=== PATIENT | female | born 1945 | race Caucasian/White ===

== ENCOUNTER 2017-08-23 15:48 | Emergency (ER) | payer MEDICARE, BC ==
[~2017-08-23] VITALS: Ht 162.6 cm; Wt 50.0 kg
[~2017-08-23 15:48] MED LIST: ALBU18HF2 IH; ASPI-1265 PO; COL100C PO; FAMO-128 PO; FENO145T38 PO; LEVO50TA67 PO; METO50TA16 PO; NITR0.4T51 SL; SIMV20TA5 PO
[2017-08-23] MEDS ORDERED: normal saline 1000ML IV soln IVB ONE (18:00)
[2017-08-23] MEDS ORDERED: ondansetron/PF 4mg/2ml inj IV ONE (18:00)
[2017-08-23 18:19] LABS: CLARITY,URINE CLEAR (Clear); COLOR,URINE YELLOW (Yellow); GLUCOSE, URINE NEGATIVE (Neg); KETONES,URINE NEGATIVE (Neg); LEUKOCYTE ESTERASE ,URINE LARGE (Neg); NITRITES, URINE POSITIVE (Neg); OCCULT BLOOD,URINE LARGE (Neg); PH,URINE 6.5 (4.8-8.0); PROTEIN,URINE TRACE mg/dl (Neg)
[2017-08-23 18:21] LABS: UA COLLECTION TYPE VOIDED
[2017-08-23 18:25] LABS: BACTERIA,URINE 4+ /HPF (Neg); RBC,URINE TNTC /HPF (0-2); SQUAMOUS EPITHELIAL CELL,UR FEW /LPF (FEW); WBC,URINE 20-30 /HPF (0-4)
[2017-08-23 18:26] LABS: URINE AMPHETAMINE SCREEN NEGATIVE (Neg); URINE BARBITUATE SCREEN NEGATIVE (Neg); URINE BENZODIAZEPINES SCREEN NEGATIVE (Neg); URINE CANNABINOID SCREEN NEGATIVE (Neg); URINE COCAINE SCREEN NEGATIVE (Neg); URINE METHADONE SCREEN NEGATIVE (Neg); URINE OPIATE SCREEN NEGATIVE (Neg); URINE PHENCYCLIDINE SCREEN NEGATIVE (Neg); WBC CLUMPS,URINE FEW /HPF (NEGATIVE)
[2017-08-23 18:48] LABS: BASOPHILS % (AUTO) 0.2 % (0-1); EOSINOPHILS # (AUTO) 0.1 X10'3 (0-0.9); EOSINOPHILS % (AUTO) 1.6 % (0-6); HEMATOCRIT 31.8 % (35.0-45.0); HEMOGLOBIN 10.4 g/dl (12.0-16.0); LYMPHOCYTES % (AUTO) 14.7 % (21-51); MEAN CORPUSCULAR HEMOGLOBIN 19.9 PG (27.0-31.0); MEAN CORPUSCULAR HGB CONC 32.6 % (33.0-36.5); MEAN CORPUSCULAR VOLUME 61.2 FL (78-98); MEAN PLATELET VOLUME 9.2 FL (7.4-10.4); MONOCYTES # (AUTO) 0.3 X10'3 (0-0.9); MONOCYTES % (AUTO) 4.6 % (2-12); NEUTROPHILS # (AUTO) 5.2 X10'3 (1.8-7.7); NEUTROPHILS % (AUTO) 78.9 % (42-75); PLATELET COUNT 239 X10'3 (140-440); RED BLOOD COUNT 5.19 X10'6 (4.20-5.60); RED CELL DISTRIBUTION WIDTH 16.2 % (11.5-14.5); WHITE BLOOD COUNT 6.5 X10'3 (4.5-11.0)
[2017-08-23 19:11] LABS: ALANINE AMINOTRANSFERASE 27 U/L (12-78); ALBUMIN 3.8 G/DL (3.4-5.0); ALBUMIN/GLOBULIN RATIO 1.1 (1.1-1.5); ALKALINE PHOSPHATASE 61 IU/L (46-116); ANION GAP 12 (8-16); ASPARTATE AMINO TRANSFERASE 23 U/L (10-37); BILIRUBIN,TOTAL 0.8 MG/DL (0.1-1.0); BLOOD UREA NITROGEN 9 MG/DL (7-18); BUN/CREATININE RATIO 14.1 (6.6-38.0); CALCIUM 9.1 MG/DL (8.5-10.1); CHLORIDE 106 MMOL/L (99-107); CREATININE 0.64 MG/DL (0.40-0.90); GLUCOSE 96 MG/DL (70-104); LIPASE 174 U/L (73-393); POTASSIUM 3.7 MMOL/L (3.5-5.1); SODIUM 139 MMOL/L (135-145); TOTAL CARBON DIOXIDE 21.3 MMOL/L (24-32); TOTAL PROTEIN 7.3 G/DL (6.4-8.2); TROPONIN I 0.04 NG/ML (0.0-0.05); eGFR > 90 ML/MIN
[2017-08-23] MEDS ORDERED: cefTRIAXone 1g/NS 100ml IVPB 100 ML IV ONE (19:25)
[2017-08-23 20:20] LABS: ANISOCYTOSIS 1+; HYPOCHROMASIA 2+; MICROCYTOSIS 2+; POIKILOCYTOSIS 1+; POLYCHROMASIA FEW; SPHEROCYTES FEW; TARGET CELLS FEW
[2017-08-23 20:21] LABS: BURR CELLS 1+; ELLIPTOCYTES 1+; TEAR DROP CELLS 1+
[2017-08-23 20:22] LABS: SCHISTOCYTES 1+
[2017-08-23 20:23] LABS: GIANT PLATELET FEW; LARGE PLATELETS FEW
[2017-08-23 20:24] LABS: PLATELET ESTIMATE NORMAL
[2017-08-23] MEDS ORDERED: LEVO500T2 PO (20:55)
[2017-08-23 21:21] VITALS: BP 111/66
== END 2017-08-23 21:24 | disposition home or self-care (01) ==
LOC: ER 15:49
DX: N12 Tubulo-interstitial nephritis, not specified as acute or chronic (principal); I25.10 Atherosclerotic heart disease of native coronary artery without angina pectoris; I10 Essential (primary) hypertension; J44.9 Chronic obstructive pulmonary disease, unspecified; Z87.891 Personal history of nicotine dependence; Z79.82 Long term (current) use of aspirin; Z88.2 Allergy status to sulfonamides
CPT/HCPCS: 36415; 71045; 74176; 80053; 80305; 81001; 83605; 83690; 83880; 84484; 85025; 87040; 87077; 87088; 87186; 93005; 96361; 96365; 96375; 99285; J0696; J2405; J7030; A4353

== ENCOUNTER 2018-04-11 11:32 | Outpatient (CLI) | payer MEDICARE ==
[2018-04-11] VITALS (21 sets, daily range): BP systolic 101–169; BP diastolic 53–86
== END 2018-04-11 23:59 | disposition home or self-care (01) ==
LOC: CARD DIAG 11:32
PROVIDERS: ATTEND Family Medicine
DX: R42 Dizziness and giddiness (principal); F17.200 Nicotine dependence, unspecified, uncomplicated; J44.9 Chronic obstructive pulmonary disease, unspecified; E78.5 Hyperlipidemia, unspecified; Z79.82 Long term (current) use of aspirin
CPT/HCPCS: 93660

== ENCOUNTER 2018-11-01 12:46 | Emergency (ER) | payer MEDICARE ==
[~2018-11-01] VITALS: Ht 154.9 cm; Wt 60.6 kg
[2018-11-01 12:52] VITALS: BP 164/68
== END 2018-11-01 15:03 | disposition home or self-care (01) ==
LOC: ER 12:47
DX: S63.681A Other sprain of right thumb, initial encounter (principal); I25.10 Atherosclerotic heart disease of native coronary artery without angina pectoris; I10 Essential (primary) hypertension; J44.9 Chronic obstructive pulmonary disease, unspecified; Z98.61 Coronary angioplasty status; Z88.2 Allergy status to sulfonamides; Z79.82 Long term (current) use of aspirin; Z79.899 Other long term (current) drug therapy; W18.39XA Other fall on same level, initial encounter; Y93.89 Activity, other specified; Y92.89 Other specified places as the place of occurrence of the external cause; Y99.8 Other external cause status
CPT/HCPCS: 29125; 73130; 99284

== ENCOUNTER 2019-01-18 22:31 | Emergency (ER) | payer MEDICARE ==
[~2019-01-18] VITALS: Ht 157.5 cm; Wt 61.8 kg
[~2019-01-18 22:31] MED LIST changes: -ALBU18HF2 IH; +ALBU18HF2 INH; +CHOL10002 PO; -COL100C PO; +CYAN250014 PO; -FAMO-128 PO; -FENO145T38 PO; +GEMF600T89 PO; +LISI-604 PO; -METO50TA16 PO; +MULT-933 PO; -NITR0.4T51 SL; +UMEC1DIS INH
[2019-01-18] MEDS ORDERED: lisinopril 5mg tablet PO ONE (23:05)
[2019-01-18] MEDS ORDERED: lisinopril 10 MG tablet PO ONE (23:05)
[2019-01-18 23:21] LABS: BASOPHILS # (AUTO) 0.1 X10'3 (0-0.2); BASOPHILS % (AUTO) 0.8 % (0-1); EOSINOPHILS # (AUTO) 0.2 X10'3 (0-0.9); HEMATOCRIT 34.2 % (35.0-45.0); HEMOGLOBIN 11.3 g/dl (12.0-16.0); LYMPHOCYTES # (AUTO) 1.4 X10'3 (1.1-4.8); LYMPHOCYTES % (AUTO) 21.2 % (21-51); MEAN CORPUSCULAR HEMOGLOBIN 20.7 PG (27.0-31.0); MEAN CORPUSCULAR VOLUME 62.7 FL (78-98); MEAN PLATELET VOLUME 10.6 FL (7.4-10.4); MONOCYTES # (AUTO) 0.4 X10'3 (0-0.9); MONOCYTES % (AUTO) 6.4 % (2-12); NEUTROPHILS # (AUTO) 4.6 X10'3 (1.8-7.7); NEUTROPHILS % (AUTO) 68.6 % (42-75); PLATELET COUNT 288 X10'3 (140-440); RED BLOOD COUNT 5.45 X10'6 (4.20-5.60); RED CELL DISTRIBUTION WIDTH 16.5 % (11.5-14.5); WHITE BLOOD COUNT 6.7 X10'3 (4.5-11.0)
[2019-01-18 23:32] LABS: ALANINE AMINOTRANSFERASE 24 U/L (12-78); ALBUMIN 4.1 G/DL (3.4-5.0); ALBUMIN/GLOBULIN RATIO 1.1 (1.1-1.5); ALKALINE PHOSPHATASE 62 IU/L (46-116); ANION GAP 11 (8-16); ASPARTATE AMINO TRANSFERASE 20 U/L (10-37); BILIRUBIN,TOTAL 0.6 MG/DL (0.1-1.0); BLOOD UREA NITROGEN 16 MG/DL (7-18); BUN/CREATININE RATIO 16.3 (6.6-38.0); CALCIUM 8.9 MG/DL (8.5-10.1); CHLORIDE 103 MMOL/L (99-107); CREATININE 0.98 MG/DL (0.40-0.90); GLUCOSE 102 MG/DL (70-104); POTASSIUM 3.8 MMOL/L (3.5-5.1); SODIUM 138 MMOL/L (135-145); TOTAL CARBON DIOXIDE 24.3 MMOL/L (24-32); TOTAL PROTEIN 7.7 G/DL (6.4-8.2); eGFR 55 ML/MIN
[2019-01-18 23:33] LABS: PARTIAL THROMBOPLASTIN TIME 28 SECONDS (22-32)
[2019-01-19 01:32] VITALS: BP 141/79
[2019-01-19 05:35] LABS: PLATELET ESTIMATE NORMAL
[2019-01-19 05:36] LABS: LARGE PLATELETS MODERATE
[2019-01-19 05:40] LABS: MICROCYTOSIS 2+
[2019-01-19 05:41] LABS: ANISOCYTOSIS 1+
== END 2019-01-19 01:37 | disposition home or self-care (01) ==
LOC: ER 22:32
DX: I10 Essential (primary) hypertension (principal); R06.00 Dyspnea, unspecified; R51 Headache; R79.1 Abnormal coagulation profile; J44.9 Chronic obstructive pulmonary disease, unspecified; I25.10 Atherosclerotic heart disease of native coronary artery without angina pectoris; E03.9 Hypothyroidism, unspecified; Z88.8 Allergy status to other drugs, medicaments and biological substances; Z88.2 Allergy status to sulfonamides; Z79.899 Other long term (current) drug therapy; Z79.82 Long term (current) use of aspirin; Z87.440 Personal history of urinary (tract) infections; Z98.890 Other specified postprocedural states; Z98.61 Coronary angioplasty status
CPT/HCPCS: 36415; 71045; 80053; 84484; 85025; 85610; 85730; 93005; 99284

== ENCOUNTER 2019-02-07 03:53 | Emergency (ER) | payer MEDICARE ==
[~2019-02-07] VITALS: Ht 160 cm; Wt 61.8 kg
[2019-02-07] MEDS ORDERED: ondansetron/PF 4mg/2ml inj IV ONE (04:15)
[2019-02-07] MEDS ORDERED: morphine 4 MG/ML inj SYRINge IV ONE (04:15)
--- NOTE | 2019-02-07 04:33 | NUR ---
AFTER TRIAGE, PT C/O NECK PAIN. C-COLLAR PLACED.
[2019-02-07 05:12] LABS: BASOPHILS % (AUTO) 0.6 % (0-1); EOSINOPHILS # (AUTO) 0.2 X10'3 (0-0.9); MEAN CORPUSCULAR VOLUME 62.7 FL (78-98); MEAN PLATELET VOLUME 9.1 FL (7.4-10.4); MONOCYTES # (AUTO) 0.4 X10'3 (0-0.9); NEUTROPHILS # (AUTO) 4.5 X10'3 (1.8-7.7)
[2019-02-07 05:15] LABS: EOSINOPHILS % (AUTO) 3.4 % (0-6); HEMATOCRIT 33.1 % (35.0-45.0); HEMOGLOBIN 10.9 g/dl (12.0-16.0); MEAN CORPUSCULAR HEMOGLOBIN 20.6 PG (27.0-31.0); MEAN CORPUSCULAR HGB CONC 32.8 g/dL (33.0-36.5); MONOCYTES % (AUTO) 5.9 % (2-12); NEUTROPHILS % (AUTO) 73.1 % (42-75); PLATELET COUNT 227 X10'3 (140-440); RED BLOOD COUNT 5.28 X10'6 (4.20-5.60); RED CELL DISTRIBUTION WIDTH 15.5 % (11.5-14.5); WHITE BLOOD COUNT 6.1 X10'3 (4.5-11.0)
[2019-02-07 05:21] LABS: PARTIAL THROMBOPLASTIN TIME 29 SECONDS (22-32)
[2019-02-07 05:23] LABS: ALANINE AMINOTRANSFERASE 26 U/L (12-78); ALBUMIN 3.6 G/DL (3.4-5.0); ALBUMIN/GLOBULIN RATIO 1.2 (1.1-1.5); ALKALINE PHOSPHATASE 58 IU/L (46-116); ANION GAP 10 (8-16); ASPARTATE AMINO TRANSFERASE 20 U/L (10-37); BILIRUBIN,TOTAL 0.5 MG/DL (0.1-1.0); BLOOD UREA NITROGEN 13 MG/DL (7-18); BUN/CREATININE RATIO 17.3 (6.6-38.0); CALCIUM 8.1 MG/DL (8.5-10.1); CHLORIDE 105 MMOL/L (99-107); CREATININE 0.75 MG/DL (0.40-0.90); GLUCOSE 110 MG/DL (70-104); POTASSIUM 3.8 MMOL/L (3.5-5.1); SODIUM 138 MMOL/L (135-145); TOTAL CARBON DIOXIDE 22.9 MMOL/L (24-32); TOTAL PROTEIN 6.7 G/DL (6.4-8.2); eGFR 75 ML/MIN
[2019-02-07 05:26] LABS: CREATINE KINASE 149 U/L (26-192); LIPASE 216 U/L (73-393); TROPONIN I < 0.04 NG/ML (0.0-0.05)
--- NOTE | 2019-02-07 05:26 | NUR ---
C-collar removed after clearance from
[2019-02-07 05:35] LABS: LARGE PLATELETS MODERATE; PLATELET ESTIMATE NORMAL
[2019-02-07 05:36] LABS: ANISOCYTOSIS 1+; ELLIPTOCYTES 1+; HYPOCHROMASIA 1+; MICROCYTOSIS 2+; POLYCHROMASIA 1+; SCHISTOCYTES FEW; TEAR DROP CELLS 1+
[2019-02-07 06:21] VITALS: BP 124/83
--- NOTE | 2019-02-07 06:30 | NUR ---
PATIENT ACCEPTED AT [facility] ER BY DR. LANDEROS. [facility] ARRANGED, 30 MINUTE ETA.
[2019-02-07] MEDS ORDERED: levoFLOXACIN-Levaquin 750MG/D5 150 ML IV STA (06:31)
[2019-02-07 06:36] LABS: CLARITY,URINE SLIGHTLY CLOUDY (Clear); COLOR,URINE STRAW (Yellow); GLUCOSE, URINE NEGATIVE (Neg); KETONES,URINE NEGATIVE (Neg); LEUKOCYTE ESTERASE ,URINE LARGE (Neg); NITRITES, URINE POSITIVE (Neg); OCCULT BLOOD,URINE TRACE-INTACT (Neg); PH,URINE 6.5 (4.8-8.0); PROTEIN,URINE NEGATIVE (Neg); UROBILINOGEN,URINE 0.2 E.U/dL (0.2-1.0)
[2019-02-07 06:38] LABS: UA COLLECTION TYPE CLN CATCH MIDSTREAM
[2019-02-07 06:41] LABS: MUCUS STRANDS FEW /LPF (Neg); SQUAMOUS EPITHELIAL CELL,UR FEW /LPF (FEW); WBC CLUMPS,URINE MODERATE /HPF (NEGATIVE)
[2019-02-07 06:42] LABS: RBC,URINE 0-2 /HPF (0-2); WBC,URINE 20-30 /HPF (0-4)
[2019-02-07 06:43] LABS: BACTERIA,URINE 1+ /HPF (Neg)
== END 2019-02-07 07:28 | disposition short-term general hospital (02) ==
LOC: ER 03:54
DX: S06.6X0A Traumatic subarachnoid hemorrhage without loss of consciousness, initial encounter (principal); S51.011A Laceration without foreign body of right elbow, initial encounter; S40.022A Contusion of left upper arm, initial encounter; J18.1 Lobar pneumonia, unspecified organism; I25.10 Atherosclerotic heart disease of native coronary artery without angina pectoris; I10 Essential (primary) hypertension; J44.9 Chronic obstructive pulmonary disease, unspecified; E03.9 Hypothyroidism, unspecified; F17.200 Nicotine dependence, unspecified, uncomplicated; Z95.5 Presence of coronary angioplasty implant and graft; Z98.890 Other specified postprocedural states; Z88.2 Allergy status to sulfonamides; Z79.82 Long term (current) use of aspirin; Z79.899 Other long term (current) drug therapy; W19.XXXA Unspecified fall, initial encounter; Y93.89 Activity, other specified; Y92.092 Bedroom in other non-institutional residence as the place of occurrence of the external cause; Y99.9 Unspecified external cause status
CPT/HCPCS: 36415; 70450; 70486; 71045; 72125; 80053; 81001; 82550; 83690; 84484; 85025; 85610; 85730; 87077; 87088; 87186; 93005; 96365; 96375; 99285; J1956; J2270; J2405

== ENCOUNTER 2019-06-08 12:37 | Emergency (ER) | payer MEDICARE ==
[~2019-06-08] VITALS: Ht 162.6 cm; Wt 59.1 kg
[~2019-06-08 12:37] MED LIST changes: +SIMV-42 PO; -SIMV20TA5 PO
[2019-06-08 12:45] VITALS: BP 159/85
[2019-06-08] MEDS ORDERED: HYDROcodone/acetaminophen 10/325mg tab PO ONE (13:40)
[2019-06-08] MEDS ORDERED: HYDR-4383 PO (13:41)
[2019-06-09] MEDS ORDERED: CEPH500C5 PO (15:48)
== END 2019-06-08 14:24 | disposition home or self-care (01) ==
LOC: ER 12:38
DX: S29.9XXA Unspecified injury of thorax, initial encounter (principal); S09.90XA Unspecified injury of head, initial encounter; I25.10 Atherosclerotic heart disease of native coronary artery without angina pectoris; E78.00 Pure hypercholesterolemia, unspecified; I10 Essential (primary) hypertension; J44.9 Chronic obstructive pulmonary disease, unspecified; E03.9 Hypothyroidism, unspecified; Z98.61 Coronary angioplasty status; Z98.890 Other specified postprocedural states; Z88.6 Allergy status to analgesic agent; Z88.2 Allergy status to sulfonamides; Z79.82 Long term (current) use of aspirin; Z79.899 Other long term (current) drug therapy; W18.39XA Other fall on same level, initial encounter; Y93.89 Activity, other specified; Y92.098 Other place in other non-institutional residence as the place of occurrence of the external cause; Y99.8 Other external cause status
CPT/HCPCS: 70450; 71045; 99284

== ENCOUNTER 2019-06-09 13:27 | Emergency (ER) | payer MEDICARE ==
[~2019-06-09] VITALS: Ht 160 cm; Wt 61.4 kg
[~2019-06-09 13:27] MED LIST changes: +HYDR-4383 PO
--- NOTE | 2019-06-09 14:13 | NUR ---
PT TO CT SCAN , C-COLLAR REMOVED.
[2019-06-09 14:48] LABS: BASOPHILS % (AUTO) 0.4 % (0-1); EOSINOPHILS # (AUTO) 0.1 X10'3 (0-0.9); EOSINOPHILS % (AUTO) 1.7 % (0-6); HEMATOCRIT 34.8 % (35.0-45.0); HEMOGLOBIN 11.3 g/dl (12.0-16.0); LYMPHOCYTES # (AUTO) 0.9 X10'3 (1.1-4.8); LYMPHOCYTES % (AUTO) 19.1 % (21-51); MEAN CORPUSCULAR HEMOGLOBIN 20.7 PG (27.0-31.0); MEAN CORPUSCULAR HGB CONC 32.4 g/dL (33.0-36.5); MEAN CORPUSCULAR VOLUME 63.8 FL (78-98); MEAN PLATELET VOLUME 9.5 FL (7.4-10.4); MONOCYTES # (AUTO) 0.5 X10'3 (0-0.9); MONOCYTES % (AUTO) 11.3 % (2-12); NEUTROPHILS # (AUTO) 3.3 X10'3 (1.8-7.7); NEUTROPHILS % (AUTO) 67.5 % (42-75); PLATELET COUNT 183 X10'3 (140-440); RED BLOOD COUNT 5.45 X10'6 (4.20-5.60); RED CELL DISTRIBUTION WIDTH 15.8 % (11.5-14.5); WHITE BLOOD COUNT 4.8 X10'3 (4.5-11.0)
[2019-06-09 15:06] LABS: CLARITY,URINE CLOUDY (Clear); COLOR,URINE STRAW (Yellow); GLUCOSE, URINE NEGATIVE (Neg); KETONES,URINE NEGATIVE (Neg); LEUKOCYTE ESTERASE ,URINE MODERATE (Neg); NITRITES, URINE POSITIVE (Neg); OCCULT BLOOD,URINE NEGATIVE (Neg); PROTEIN,URINE NEGATIVE (Neg); UROBILINOGEN,URINE 0.2 E.U/dL (0.2-1.0)
[2019-06-09 15:12] LABS: UA COLLECTION TYPE STRAIGHT CATH
[2019-06-09 15:17] LABS: MUCUS STRANDS NONE SEEN /LPF (Neg); SQUAMOUS EPITHELIAL CELL,UR NONE SEEN /LPF (FEW)
[2019-06-09 15:19] LABS: BACTERIA,URINE 4+ /HPF (Neg); RBC,URINE 0-2 /HPF (0-2); WBC,URINE 20-30 /HPF (0-4)
[2019-06-09 15:30] LABS: PLATELET ESTIMATE NORMAL
[2019-06-09 15:31] LABS: ANISOCYTOSIS 1+; HYPOCHROMASIA 1+; MICROCYTOSIS 2+; POIKILOCYTOSIS 3+; POLYCHROMASIA FEW
[2019-06-09 15:32] LABS: BURR CELLS FEW; ELLIPTOCYTES 1+; SCHISTOCYTES 3+; TEAR DROP CELLS 3+
[2019-06-09 15:40] LABS: ALANINE AMINOTRANSFERASE 26 U/L (12-78); ALBUMIN 4.1 G/DL (3.4-5.0); ALBUMIN/GLOBULIN RATIO 1.2 (1.1-1.5); ALKALINE PHOSPHATASE 59 IU/L (46-116); ANION GAP 6 (8-16); ASPARTATE AMINO TRANSFERASE 23 U/L (10-37); BILIRUBIN,TOTAL 0.6 MG/DL (0.1-1.0); BLOOD UREA NITROGEN 17 MG/DL (7-18); BUN/CREATININE RATIO 19.5 (6.6-38.0); CHLORIDE 105 MMOL/L (99-107); CREATININE 0.87 MG/DL (0.40-0.90); GLUCOSE 90 MG/DL (70-104); POTASSIUM 3.9 MMOL/L (3.5-5.1); SODIUM 140 MMOL/L (135-145); TOTAL CARBON DIOXIDE 29.1 MMOL/L (24-32); TOTAL PROTEIN 7.4 G/DL (6.4-8.2); eGFR 63 ML/MIN
[2019-06-09] MEDS ORDERED: CEPH500C5 PO (15:48)
[2019-06-09] MEDS ORDERED: cephalexin 250mg capsule PO ONE (15:50)
--- NOTE | 2019-06-09 16:12 | NUR ---
PT ABSOLUTELY REFUSED HER ANTIBIOTIC, STATES HER DOCTOR TOLD HER NOT TO TAKE ANY ANTIBIOTICS. EXPLAINED TO PT THE DANGERS OF NOT TREATING A UTI. WAS NOTIFIED THAT PT REFUSED MED. PT DISCHARGED WITH PRESCRIPTION FOR KEFLEX, BUT SAID SHE WON'T GET IT, ENCOURAGED TO F/U CLOSELY WITH HER PMD FOR THIS MATTER.
[2019-06-09 16:19] VITALS: BP 145/51
== END 2019-06-09 16:20 | disposition home or self-care (01) ==
LOC: ER 13:28
DX: S00.03XA Contusion of scalp, initial encounter (principal); N39.0 Urinary tract infection, site not specified; I25.10 Atherosclerotic heart disease of native coronary artery without angina pectoris; E78.00 Pure hypercholesterolemia, unspecified; I10 Essential (primary) hypertension; J44.9 Chronic obstructive pulmonary disease, unspecified; E03.9 Hypothyroidism, unspecified; Z98.61 Coronary angioplasty status; Z98.890 Other specified postprocedural states; Z88.2 Allergy status to sulfonamides; Z88.8 Allergy status to other drugs, medicaments and biological substances; Z79.82 Long term (current) use of aspirin; Z79.899 Other long term (current) drug therapy; W19.XXXA Unspecified fall, initial encounter; Y93.89 Activity, other specified; Y92.009 Unspecified place in unspecified non-institutional (private) residence as the place of occurrence of the external cause; Y99.8 Other external cause status
CPT/HCPCS: 36415; 70450; 71250; 72125; 80053; 81001; 85025; 99284

== ENCOUNTER 2019-07-09 03:13 | Inpatient (IN) | payer MEDICARE ==
[~2019-07-09] VITALS: Ht 157.5 cm; Wt 62.0 kg
[~2019-07-09 03:13] MED LIST changes: +CEPH500C5 PO
[2019-07-09 03:44] LABS: BASOPHILS # (AUTO) 0.1 X10'3 (0-0.2); BASOPHILS % (AUTO) 0.9 % (0-1); EOSINOPHILS # (AUTO) 0.2 X10'3 (0-0.9); EOSINOPHILS % (AUTO) 1.2 % (0-6); HEMATOCRIT 38.1 % (35.0-45.0); HEMOGLOBIN 12.3 g/dl (12.0-16.0); LYMPHOCYTES # (AUTO) 1.1 X10'3 (1.1-4.8); LYMPHOCYTES % (AUTO) 8.3 % (21-51); MEAN CORPUSCULAR HEMOGLOBIN 20.5 PG (27.0-31.0); MEAN CORPUSCULAR HGB CONC 32.3 g/dL (33.0-36.5); MEAN CORPUSCULAR VOLUME 63.5 FL (78-98); MEAN PLATELET VOLUME 9.5 FL (7.4-10.4); MONOCYTES # (AUTO) 0.4 X10'3 (0-0.9); MONOCYTES % (AUTO) 2.9 % (2-12); NEUTROPHILS # (AUTO) 11.2 X10'3 (1.8-7.7); NEUTROPHILS % (AUTO) 86.7 % (42-75); PLATELET COUNT 269 X10'3 (140-440); RED CELL DISTRIBUTION WIDTH 15.2 % (11.5-14.5); WHITE BLOOD COUNT 12.9 X10'3 (4.5-11.0)
[2019-07-09] MEDS ORDERED: AMLO2.5T2 PO (03:52)
[2019-07-09 03:55] LABS: ALANINE AMINOTRANSFERASE 20 U/L (12-78); ALBUMIN 4.5 G/DL (3.4-5.0); ALBUMIN/GLOBULIN RATIO 1.5 (1.1-1.5); ALKALINE PHOSPHATASE 69 IU/L (46-116); ANION GAP 10 (8-16); ASPARTATE AMINO TRANSFERASE 17 U/L (10-37); BILIRUBIN,TOTAL 0.7 MG/DL (0.1-1.0); BLOOD UREA NITROGEN 18 MG/DL (7-18); BUN/CREATININE RATIO 21.4 (6.6-38.0); CALCIUM 9.4 MG/DL (8.5-10.1); CHLORIDE 99 MMOL/L (99-107); CREATININE 0.84 MG/DL (0.40-0.90); GLUCOSE 123 MG/DL (70-104); POTASSIUM 3.7 MMOL/L (3.5-5.1); SODIUM 136 MMOL/L (135-145); TOTAL CARBON DIOXIDE 26.7 MMOL/L (24-32); TOTAL PROTEIN 7.5 G/DL (6.4-8.2); eGFR 66 ML/MIN
[2019-07-09] MEDS ORDERED: KEP500T PO (03:57)
[2019-07-09] MEDS ORDERED: LACT1CAP65 PO (03:57)
[2019-07-09] MEDS ORDERED: CALC-212 PO (03:57)
[2019-07-09] MEDS ORDERED: CRAN500C3 PO (03:57)
--- NOTE | 2019-07-09 03:58 | NUR ---
Dr. Guerrero at bedside assessing patient, rr even un labored denies cp no observable s/s of acute stress/pain at this time will continue to monitor
[2019-07-09 04:19] LABS: PLATELET ESTIMATE NORMAL
[2019-07-09] MEDS ORDERED: normal saline 1000ML IV soln IVB ONE (04:20)
[2019-07-09] MEDS ORDERED: pantoprazole 40 MG vial IV ONE (04:20)
[2019-07-09 04:21] LABS: ELLIPTOCYTES 1+; MICROCYTOSIS 1+
[2019-07-09] MEDS: morphine 2 MG/ML inj. syringe IV PRN ×2 (04:28→07:25)
[2019-07-09 05:46] LABS: CLARITY,URINE CLOUDY (Clear); COLOR,URINE YELLOW (Yellow); GLUCOSE, URINE NEGATIVE (Neg); KETONES,URINE NEGATIVE (Neg); LEUKOCYTE ESTERASE ,URINE NEGATIVE (Neg); NITRITES, URINE POSITIVE (Neg); OCCULT BLOOD,URINE TRACE-INTACT (Neg); PH,URINE 7.5 (4.8-8.0); PROTEIN,URINE NEGATIVE (Neg); UROBILINOGEN,URINE 0.2 E.U/dL (0.2-1.0)
[2019-07-09 05:49] LABS: UA COLLECTION TYPE STRAIGHT CATH
[2019-07-09 05:57] LABS: MUCUS STRANDS FEW /LPF (Neg); SQUAMOUS EPITHELIAL CELL,UR FEW /LPF (FEW)
[2019-07-09 05:58] LABS: BACTERIA,URINE 3+ /HPF (Neg); HYALINE CASTS 0-3 /LPF (NEGATIVE); RBC,URINE 0-2 /HPF (0-2); TRANSITIONAL EPI CELLS,URINE FEW /HPF; WBC,URINE 0-4 /HPF (0-4)
[2019-07-09] MEDS ORDERED: levoFLOXACIN-Levaquin 500mg/D5 100 ML IV ONE (06:15)
--- NOTE | 2019-07-09 06:17 | NUR ---
sbar to camelia abdullahi no questions or concerns after assuming care
--- NOTE | 2019-07-09 06:39 | NUR ---
PT RESTING IN POC WITHOUT NEED AT THIS TIME. VSS. WAITING HOSPITALIST FOR ADMISSION. 3HR TROP, LA, AND BC JUST DRAWN BY LAB, WAITING ABX FROM PHARMACY.
--- NOTE | 2019-07-09 07:31 | NUR ---
REPOSITIONED PT AND MS GIVEN FOR COMFORT. LA BACK AT 2.2 AND TEMP 99.0. HOSPITALIST PAGED.
--- NOTE | 2019-07-09 07:36 | NUR ---
SPOKE WITH ER MD ABOUT LA AND TEMP. NO NEW ORDERS. WAITING HOSPITALIST.
[2019-07-09] MEDS ORDERED: acetaminophen 325mg tablet PO PRN ×2 (07:45)
[2019-07-09] MEDS ORDERED: ondansetron/PF 4mg/2ml inj IV PRN (07:45)
[2019-07-09] MEDS ORDERED: HYDROcodone/acetaminophen 5mg/325mg tablet PO PRN (07:45)
[2019-07-09] MEDS ORDERED: mag hydrox/Alum hydrox/simeth 30ml oral suspension PO PRN (07:45)
[2019-07-09] MEDS ORDERED: morphine 2 MG/ML inj. syringe IV PRN ×2 (07:45)
[2019-07-09] MEDS ORDERED: magnesium hydroxide 30ml (MOM) UD suspension PO PRN (07:45)
[2019-07-09] MEDS: amLODIPine 5mg tablet PO SCH (08:00)
[2019-07-09] MEDS ORDERED: non-formulary drug (Calcium Cmb 2/Mag Cmb 12/Vitd3 (Calcium 500 Mg Tablet) 1 TAB) PO SCH (08:00)
[2019-07-09] MEDS ORDERED: CRANBERRY PO SCH (08:00)
[2019-07-09] MEDS: CefTRIAXone/D5W-Rocephin 1gm 50 ML IV SCH (08:09)
[2019-07-09] MEDS: normal saline 1000ml 1,000 ML IV SCH ×2 (08:09→16:27)
[2019-07-09] MEDS: azithromycin/NS 500mg/250ml 250 ML IV SCH (08:39)
--- NOTE | 2019-07-09 08:48 | NUR ---
DAUGHTER AT BEDSIDE, UPDATED ON POC AND ABX.
--- NOTE | 2019-07-09 08:57 | NUR ---
WAITING PO AM MEDS FROM PHARMACY.
--- NOTE | 2019-07-09 09:07 | NUR ---
LAB AT BEDSIDE FOR 3RD TROPONIN. PT REPORTS SOME NAUSEA, ORDERED ZOFRAN GIVEN.
[2019-07-09] MEDS: lactobacillus rhamnosus 10,000 MMU CELLS/CAPSULE PO SCH ×2 (10:45→22:12)
[2019-07-09] MEDS: levoTHYROXINE 88mcg tablet PO SCH (10:47)
[2019-07-09] MEDS: multivitamins, therapeutics tablet PO SCH (10:48)
[2019-07-09] MEDS: cyanocobalamin 500mcg tablet PO SCH (10:49)
[2019-07-09] MEDS: levetiracetam 250mg tablet PO SCH ×2 (10:51→22:12)
[2019-07-09] MEDS: heparin, porcine 5000 units/ml vial SQ SCH ×2 (10:53→22:13)
[2019-07-09] MEDS: vitamin D (cholecalciferol) 1,000 unit tablet PO SCH (10:59)
[2019-07-09 11:00] VITALS: BP 99/57
--- NOTE | 2019-07-09 11:00 | NUR ---
received report from Joan GARNER.
--- NOTE | 2019-07-09 14:57 | NUR ---
Malnutrition consult: Pt admit w/ UTI and L lower lobe PNA per MD. BMI 25, pt well-appearing per MD note, no edema/wounds, and no wt loss comparing gurney scaled wts prior admit 7 months ago. PO heart healthy diet pending. At this time pt does not meet minimum malnutrition criteria. Will monitor for additional criteria this admit. Addendum: 07/09/19 at [address] Amended: Links added.
--- NOTE | 2019-07-09 18:00 | NUR ---
Problems reprioritized. Patient report given, questions answered & plan of care reviewed with PASCUAL Gallegos.
[2019-07-09] MEDS: traMADol 50MG tablet PO PRN (18:15)
[2019-07-09 20:00] VITALS: BP 104/49
[2019-07-09] MEDS: atorvastatin 10mg tablet PO SCH (22:12)
[2019-07-10] VITALS: BP 86/50
[2019-07-10 00:15] VITALS: BP 92/52
[2019-07-10] MEDS: normal saline 1000ml 1,000 ML IV SCH ×3 (01:40→23:30)
--- NOTE | 2019-07-10 06:00 | NUR ---
Patient in room [facility]. I have received report from PASCUAL Oviedo and had the opportunity to ask questions and assume patient care.
[2019-07-10 08:00] VITALS: BP 97/55
[2019-07-10] MEDS: amLODIPine 5mg tablet PO SCH (08:00)
[2019-07-10] MEDS: lactobacillus rhamnosus 10,000 MMU CELLS/CAPSULE PO SCH ×2 (08:06→19:40)
[2019-07-10] MEDS: traMADol 50MG tablet PO PRN (08:06)
[2019-07-10] MEDS: levetiracetam 250mg tablet PO SCH ×2 (08:07→19:40)
[2019-07-10] MEDS: multivitamins, therapeutics tablet PO SCH (08:07)
[2019-07-10] MEDS: levoTHYROXINE 88mcg tablet PO SCH (08:07)
[2019-07-10] MEDS: heparin, porcine 5000 units/ml vial SQ SCH ×2 (08:08→19:46)
[2019-07-10] MEDS: cyanocobalamin 500mcg tablet PO SCH (08:08)
[2019-07-10] MEDS: CefTRIAXone/D5W-Rocephin 1gm 50 ML IV SCH (08:08)
[2019-07-10] MEDS: vitamin D (cholecalciferol) 1,000 unit tablet PO SCH (08:09)
[2019-07-10 08:32] LABS: BASOPHILS % (AUTO) 0.2 % (0-1); EOSINOPHILS % (AUTO) 0.1 % (0-6); HEMOGLOBIN 9.5 g/dl (12.0-16.0); LYMPHOCYTES # (AUTO) 0.6 X10'3 (1.1-4.8); LYMPHOCYTES % (AUTO) 6.3 % (21-51); MEAN CORPUSCULAR HEMOGLOBIN 20.7 PG (27.0-31.0); MEAN CORPUSCULAR HGB CONC 32.8 g/dL (33.0-36.5); MEAN PLATELET VOLUME 10.1 FL (7.4-10.4); MONOCYTES # (AUTO) 0.2 X10'3 (0-0.9); MONOCYTES % (AUTO) 1.6 % (2-12); NEUTROPHILS # (AUTO) 8.8 X10'3 (1.8-7.7); NEUTROPHILS % (AUTO) 91.8 % (42-75); PLATELET COUNT 175 X10'3 (140-440); RED CELL DISTRIBUTION WIDTH 15.3 % (11.5-14.5); WHITE BLOOD COUNT 9.6 X10'3 (4.5-11.0)
[2019-07-10 08:42] LABS: ALBUMIN 2.8 G/DL (3.4-5.0); ANION GAP 9 (8-16); BLOOD UREA NITROGEN 19 MG/DL (7-18); BUN/CREATININE RATIO 22.4 (6.6-38.0); CHLORIDE 106 MMOL/L (99-107); CREATININE 0.85 MG/DL (0.40-0.90); GLUCOSE 97 MG/DL (70-104); POTASSIUM 3.9 MMOL/L (3.5-5.1); SODIUM 139 MMOL/L (135-145); TOTAL CARBON DIOXIDE 24.1 MMOL/L (24-32); eGFR 65 ML/MIN
[2019-07-10 10:00] LABS: MICROCYTOSIS 2+; PLATELET ESTIMATE NORMAL; TOTAL CELLS COUNTED 100
[2019-07-10 10:01] LABS: ELLIPTOCYTES 1+; TEAR DROP CELLS FEW
[2019-07-10 10:02] LABS: SCHISTOCYTES FEW; TOXIC GRANULATION 1+
[2019-07-10] MEDS: azithromycin/NS 500mg/250ml 250 ML IV SCH (10:06)
[2019-07-10] MEDS: HYDROcodone/acetaminophen 5mg/325mg tablet PO PRN ×2 (10:07→17:01)
[2019-07-10 11:00] VITALS: BP 92/51
[2019-07-10 18:00] VITALS: BP 105/42
--- NOTE | 2019-07-10 18:00 | NUR ---
Problems reprioritized. Patient report given, questions answered & plan of care reviewed with PASCUAL Carrasquillo.
[2019-07-10] MEDS: albuterol 2.5 MG/3 ML nebule NEB PRN (21:59)
[2019-07-10] MEDS: atorvastatin 10mg tablet PO SCH (23:01)
[2019-07-11] VITALS: BP 131/59
[2019-07-11 05:26] LABS: BASOPHILS % (AUTO) 0.2 % (0-1); EOSINOPHILS % (AUTO) 0.2 % (0-6); HEMATOCRIT 28.6 % (35.0-45.0); HEMOGLOBIN 9.2 g/dl (12.0-16.0); LYMPHOCYTES # (AUTO) 0.6 X10'3 (1.1-4.8); LYMPHOCYTES % (AUTO) 5.3 % (21-51); MEAN CORPUSCULAR HEMOGLOBIN 20.2 PG (27.0-31.0); MEAN CORPUSCULAR HGB CONC 32.3 g/dL (33.0-36.5); MEAN CORPUSCULAR VOLUME 62.6 FL (78-98); MEAN PLATELET VOLUME 10.4 FL (7.4-10.4); MONOCYTES # (AUTO) 0.3 X10'3 (0-0.9); MONOCYTES % (AUTO) 2.5 % (2-12); NEUTROPHILS # (AUTO) 10.3 X10'3 (1.8-7.7); NEUTROPHILS % (AUTO) 91.8 % (42-75); PLATELET COUNT 180 X10'3 (140-440); RED BLOOD COUNT 4.57 X10'6 (4.20-5.60); RED CELL DISTRIBUTION WIDTH 15.3 % (11.5-14.5); WHITE BLOOD COUNT 11.2 X10'3 (4.5-11.0)
[2019-07-11 05:40] LABS: ALBUMIN 2.9 G/DL (3.4-5.0); ANION GAP 11 (8-16); BLOOD UREA NITROGEN 12 MG/DL (7-18); BUN/CREATININE RATIO 18.8 (6.6-38.0); CALCIUM 8.5 MG/DL (8.5-10.1); CHLORIDE 107 MMOL/L (99-107); CREATININE 0.64 MG/DL (0.40-0.90); GLUCOSE 87 MG/DL (70-104); POTASSIUM 3.4 MMOL/L (3.5-5.1); SODIUM 138 MMOL/L (135-145); TOTAL CARBON DIOXIDE 20.4 MMOL/L (24-32); eGFR 90 ML/MIN
[2019-07-11] MEDS: albuterol 2.5 MG/3 ML nebule NEB PRN (05:52)
--- NOTE | 2019-07-11 06:32 | NUR ---
Patient in room [facility]. I have received report from PASCUAL GOODSON and had the opportunity to ask questions and assume patient care.
[2019-07-11 07:00] VITALS: BP 152/75
[2019-07-11 07:20] LABS: ANISOCYTOSIS 1+; HYPOCHROMASIA 2+; MICROCYTOSIS 2+; PLATELET ESTIMATE NORMAL; POLYCHROMASIA 1+; TOTAL CELLS COUNTED 100; TOXIC GRANULATION 1+
[2019-07-11 07:21] LABS: ELLIPTOCYTES 1+; SCHISTOCYTES FEW; TEAR DROP CELLS 1+
[2019-07-11] MEDS: heparin, porcine 5000 units/ml vial SQ SCH ×2 (08:00→21:37)
[2019-07-11] MEDS: normal saline 1000ml 1,000 ML IV SCH (09:06)
[2019-07-11] MEDS: CefTRIAXone/D5W-Rocephin 1gm 50 ML IV SCH (09:06)
[2019-07-11] MEDS: levoTHYROXINE 88mcg tablet PO SCH (09:17)
[2019-07-11] MEDS: lactobacillus rhamnosus 10,000 MMU CELLS/CAPSULE PO SCH ×2 (09:17→21:37)
[2019-07-11] MEDS: multivitamins, therapeutics tablet PO SCH (09:17)
[2019-07-11] MEDS: levetiracetam 250mg tablet PO SCH ×2 (09:18→21:37)
[2019-07-11] MEDS: amLODIPine 5mg tablet PO SCH (09:18)
[2019-07-11] MEDS: vitamin D (cholecalciferol) 1,000 unit tablet PO SCH (09:18)
[2019-07-11] MEDS: cyanocobalamin 500mcg tablet PO SCH (09:19)
[2019-07-11] MEDS: azithromycin/NS 500mg/250ml 250 ML IV SCH (10:28)
[2019-07-11] MEDS ORDERED: potassium Cl 20 mEq SR tablet PO STA (11:24)
[2019-07-11 12:00] VITALS: BP 147/71
[2019-07-11] MEDS: ipratropium 0.5 MG/2.5ML nebule IH SCH ×2 (13:08→19:43)
[2019-07-11] MEDS ORDERED: hypromellose ophthalmic drops EACHEYE PRN (15:30)
--- NOTE | 2019-07-11 18:14 | NUR ---
Problems reprioritized. Patient report given, questions answered & plan of care reviewed with PASCUAL BOWEN.
--- NOTE | 2019-07-11 18:48 | NUR ---
received report from PASCUAL Hill
[2019-07-11 19:00] VITALS: BP 157/58
[2019-07-11] MEDS: budesonide 0.5mg/2ml UD nebule IH SCH (19:43)
[2019-07-11] MEDS: atorvastatin 10mg tablet PO SCH (21:36)
--- NOTE | 2019-07-11 23:45 | NUR ---
received order from Dr. Abbott for ativan 0.5 mg IV push once via telephone due to pt's combative and aggressive behavior.
[2019-07-11] MEDS ORDERED: LORazepam 2 mg/ml vial IV ONE (23:55)
--- NOTE | 2019-07-12 | NUR ---
pt refused midnight vitals
--- NOTE | 2019-07-12 00:22 | NUR ---
pt is being combative. pt is calling people around her "bitch" and scratching, kicking, hitting others. pt stated she is going to kill the sitter. pt is currently sitting on side of the bed and another sitter is in the room with her. charge entry clerk talked to pt as she calmed down a bit. will continue to monitor. advised as of right now to hold off on the ativan 0.5 mg IV push ordered by MD at the moment.
[2019-07-12] MEDS: ipratropium 0.5 MG/2.5ML nebule IH SCH ×4 (02:00→20:29)
--- NOTE | 2019-07-12 04:01 | NUR ---
respiratory decided to hold off on treatment due to pt's behavior earlier.
--- NOTE | 2019-07-12 04:03 | NUR ---
Breathing treatment not given at this time because patient was asleep. Patient was agitated and confused before falling asleep.
--- NOTE | 2019-07-12 05:20 | NUR ---
pt refused lab draw
--- NOTE | 2019-07-12 06:14 | NUR ---
gave report to PASCUAL Baker
--- NOTE | 2019-07-12 07:10 | NUR ---
Was told by Cate GARNER that potassium lab was entered per protocol and that it was refused by pt. however there is no record of order and no note to state pt. refused lab. Will order potassium lab per protocol.
[2019-07-12 08:00] VITALS: BP 155/89
[2019-07-12] MEDS: heparin, porcine 5000 units/ml vial SQ SCH ×3 (08:00→20:00)
[2019-07-12] MEDS: budesonide 0.5mg/2ml UD nebule IH SCH ×2 (08:31→20:29)
[2019-07-12 09:32] LABS: BASOPHILS # (AUTO) 0.1 X10'3 (0-0.2); EOSINOPHILS # (AUTO) 0.1 X10'3 (0-0.9); EOSINOPHILS % (AUTO) 0.9 % (0-6); HEMATOCRIT 33.9 % (35.0-45.0); HEMOGLOBIN 11.1 g/dl (12.0-16.0); LYMPHOCYTES # (AUTO) 0.8 X10'3 (1.1-4.8); LYMPHOCYTES % (AUTO) 11.3 % (21-51); MEAN CORPUSCULAR HEMOGLOBIN 20.4 PG (27.0-31.0); MEAN CORPUSCULAR HGB CONC 32.9 g/dL (33.0-36.5); MEAN PLATELET VOLUME 9.7 FL (7.4-10.4); MONOCYTES # (AUTO) 0.2 X10'3 (0-0.9); NEUTROPHILS # (AUTO) 5.8 X10'3 (1.8-7.7); NEUTROPHILS % (AUTO) 83.8 % (42-75); PLATELET COUNT 233 X10'3 (140-440); RED BLOOD COUNT 5.46 X10'6 (4.20-5.60); RED CELL DISTRIBUTION WIDTH 15.1 % (11.5-14.5)
[2019-07-12] MEDS: levetiracetam 250mg tablet PO SCH ×2 (09:32→21:19)
[2019-07-12] MEDS: lactobacillus rhamnosus 10,000 MMU CELLS/CAPSULE PO SCH ×2 (09:32→21:19)
[2019-07-12] MEDS: levoTHYROXINE 88mcg tablet PO SCH (09:32)
[2019-07-12] MEDS: multivitamins, therapeutics tablet PO SCH (09:32)
[2019-07-12] MEDS: cyanocobalamin 500mcg tablet PO SCH (09:33)
[2019-07-12] MEDS: vitamin D (cholecalciferol) 1,000 unit tablet PO SCH (09:33)
[2019-07-12] MEDS: amLODIPine 5mg tablet PO SCH (09:34)
[2019-07-12] MEDS: CefTRIAXone/D5W-Rocephin 1gm 50 ML IV SCH (09:34)
[2019-07-12] MEDS: HYDROcodone/acetaminophen 5mg/325mg tablet PO PRN (10:31)
[2019-07-12 10:53] LABS: ALBUMIN 3.3 G/DL (3.4-5.0); ANION GAP 9 (8-16); BLOOD UREA NITROGEN 11 MG/DL (7-18); BUN/CREATININE RATIO 19.3 (6.6-38.0); CALCIUM 9.1 MG/DL (8.5-10.1); CHLORIDE 104 MMOL/L (99-107); CREATININE 0.57 MG/DL (0.40-0.90); GLUCOSE 104 MG/DL (70-104); SODIUM 137 MMOL/L (135-145); eGFR > 90 ML/MIN
[2019-07-12 11:00] VITALS: BP 135/69
--- NOTE | 2019-07-12 11:00 | NUR ---
PAGER ID: [phone] MESSAGE: Laxmi luis [id number] pt. has critical potassium of 3.0 will replace per protocol. Olivia gutierrez
[2019-07-12] MEDS ORDERED: potassium Cl 20 mEq SR tablet PO PRN (11:30)
[2019-07-12] MEDS ORDERED: potassium CL 10mEq/100ml bag 100 ML IV PRN ×2 (11:30)
[2019-07-12] MEDS: azithromycin/NS 500mg/250ml 250 ML IV SCH (11:45)
[2019-07-12] MEDS: potassium Cl 20 mEq SR tablet PO PRN ×3 (11:46→19:54)
--- NOTE | 2019-07-12 13:20 | NUR ---
America Gould [phone] Daughter lives in [place] wants to be notified if mother moves. States she does not want Mother to go to [facility].
[2019-07-12 18:00] VITALS: BP 146/74
--- NOTE | 2019-07-12 18:12 | NUR ---
Report given to Mitra GARNER. She is aware of remaining potassium dose per protocol and following potassium lab.
--- NOTE | 2019-07-12 18:39 | NUR ---
Patient in room [facility]. I have received report from Olivia GARNER and had the opportunity to ask questions and assume patient care.
[2019-07-12] MEDS: K and/or MAG REPLACEMENT MC SCH (20:00)
[2019-07-12] MEDS: atorvastatin 10mg tablet PO SCH (21:20)
[2019-07-13] VITALS: BP 152/85
[2019-07-13] MEDS: ipratropium 0.5 MG/2.5ML nebule IH SCH ×4 (02:00→21:01)
[2019-07-13 06:09] LABS: BASOPHILS % (AUTO) 0.5 % (0-1); EOSINOPHILS # (AUTO) 0.1 X10'3 (0-0.9); EOSINOPHILS % (AUTO) 2.7 % (0-6); HEMATOCRIT 32.1 % (35.0-45.0); HEMOGLOBIN 10.3 g/dl (12.0-16.0); LYMPHOCYTES % (AUTO) 20.2 % (21-51); MEAN CORPUSCULAR HEMOGLOBIN 19.9 PG (27.0-31.0); MEAN CORPUSCULAR HGB CONC 32.2 g/dL (33.0-36.5); MEAN CORPUSCULAR VOLUME 61.9 FL (78-98); MONOCYTES # (AUTO) 0.4 X10'3 (0-0.9); NEUTROPHILS # (AUTO) 3.4 X10'3 (1.8-7.7); NEUTROPHILS % (AUTO) 68.6 % (42-75); PLATELET COUNT 279 X10'3 (140-440); RED BLOOD COUNT 5.19 X10'6 (4.20-5.60); RED CELL DISTRIBUTION WIDTH 15.2 % (11.5-14.5); WHITE BLOOD COUNT 4.9 X10'3 (4.5-11.0)
[2019-07-13 06:21] LABS: ALBUMIN 3.2 G/DL (3.4-5.0); ANION GAP 11 (8-16); BLOOD UREA NITROGEN 15 MG/DL (7-18); BUN/CREATININE RATIO 25.4 (6.6-38.0); CALCIUM 8.9 MG/DL (8.5-10.1); CHLORIDE 107 MMOL/L (99-107); CREATININE 0.59 MG/DL (0.40-0.90); GLUCOSE 87 MG/DL (70-104); POTASSIUM 3.9 MMOL/L (3.5-5.1); SODIUM 141 MMOL/L (135-145); eGFR > 90 ML/MIN
--- NOTE | 2019-07-13 06:32 | NUR ---
Problems reprioritized. Patient report given, questions answered & plan of care reviewed with Olivia GARNER.
[2019-07-13 07:00] VITALS: BP 148/84
[2019-07-13] MEDS: cyanocobalamin 500mcg tablet PO SCH (07:56)
[2019-07-13] MEDS: vitamin D (cholecalciferol) 1,000 unit tablet PO SCH (07:56)
[2019-07-13] MEDS: levoTHYROXINE 88mcg tablet PO SCH (07:56)
[2019-07-13] MEDS: azithromycin 250mg tablet PO SCH (07:56)
[2019-07-13] MEDS: levetiracetam 250mg tablet PO SCH ×2 (07:57→20:15)
[2019-07-13] MEDS: lactobacillus rhamnosus 10,000 MMU CELLS/CAPSULE PO SCH ×2 (07:57→20:15)
[2019-07-13] MEDS: CefTRIAXone/D5W-Rocephin 1gm 50 ML IV SCH (07:57)
[2019-07-13] MEDS: multivitamins, therapeutics tablet PO SCH (07:57)
[2019-07-13] MEDS: heparin, porcine 5000 units/ml vial SQ SCH ×3 (07:57→20:00)
[2019-07-13] MEDS: amLODIPine 5mg tablet PO SCH (07:57)
[2019-07-13] MEDS: K and/or MAG REPLACEMENT MC SCH ×2 (07:58→20:00)
[2019-07-13] MEDS: budesonide 0.5mg/2ml UD nebule IH SCH ×2 (09:04→21:02)
--- NOTE | 2019-07-13 09:10 | NUR ---
no needs,patient with RT currently Addendum: 07/13/19 at 0910 by Ilana Garcia RN Amended: Links added.
[2019-07-13] MEDS: lisinopril 5mg tablet PO SCH (09:27)
[2019-07-13 09:52] LABS: HYPOCHROMASIA 1+; PLATELET ESTIMATE NORMAL; POLYCHROMASIA FEW
[2019-07-13 09:53] LABS: ELLIPTOCYTES 1+; MICROCYTOSIS 2+; SCHISTOCYTES FEW; TEAR DROP CELLS 1+
[2019-07-13 11:00] VITALS: BP 138/80
[2019-07-13] MEDS ORDERED: hypromellose ophthalmic drops EACHEYE PRN ×2 (12:50→13:25)
[2019-07-13] MEDS ORDERED: guaiFENesin 200 MG/10 ML oral syrup UD cup PO PRN (12:50)
[2019-07-13] MEDS: HYDROcodone/acetaminophen 5mg/325mg tablet PO PRN ×2 (13:04→19:35)
[2019-07-13] MEDS ORDERED: polyvinyl alcohol ophthalmic drops 15ml bottle EACHEYE PRN (13:15)
--- NOTE | 2019-07-13 18:20 | NUR ---
Gave report to Tamika GARNER.
--- NOTE | 2019-07-13 18:30 | NUR ---
Patient in room [facility]. I have received report from HOLDEN and had the opportunity to ask questions and assume patient care. Addendum: 07/14/19 at 0045 by Maye Mosher RN ASSUMED CARE OF PT WITH PASCUAL Atkins
[2019-07-13 19:00] VITALS: BP 138/72
[2019-07-13] MEDS: atorvastatin 10mg tablet PO SCH (20:14)
[2019-07-14] VITALS: BP 124/76
[2019-07-14] MEDS: ipratropium 0.5 MG/2.5ML nebule IH SCH ×2 (02:33→08:08)
[2019-07-14 04:54] LABS: BASOPHILS % (AUTO) 0.6 % (0-1); EOSINOPHILS # (AUTO) 0.1 X10'3 (0-0.9); HEMATOCRIT 34.2 % (35.0-45.0); HEMOGLOBIN 11.2 g/dl (12.0-16.0); LYMPHOCYTES # (AUTO) 1.1 X10'3 (1.1-4.8); LYMPHOCYTES % (AUTO) 16.1 % (21-51); MEAN CORPUSCULAR HEMOGLOBIN 20.1 PG (27.0-31.0); MEAN CORPUSCULAR HGB CONC 32.9 g/dL (33.0-36.5); MEAN PLATELET VOLUME 9.1 FL (7.4-10.4); MONOCYTES # (AUTO) 0.7 X10'3 (0-0.9); MONOCYTES % (AUTO) 10.9 % (2-12); NEUTROPHILS # (AUTO) 4.7 X10'3 (1.8-7.7); NEUTROPHILS % (AUTO) 70.4 % (42-75); PLATELET COUNT 289 X10'3 (140-440); RED CELL DISTRIBUTION WIDTH 15.1 % (11.5-14.5); WHITE BLOOD COUNT 6.6 X10'3 (4.5-11.0)
[2019-07-14 05:09] LABS: ALBUMIN 3.4 G/DL (3.4-5.0); ANION GAP 11 (8-16); BLOOD UREA NITROGEN 19 MG/DL (7-18); BUN/CREATININE RATIO 30.2 (6.6-38.0); CALCIUM 8.8 MG/DL (8.5-10.1); CHLORIDE 107 MMOL/L (99-107); CREATININE 0.63 MG/DL (0.40-0.90); GLUCOSE 99 MG/DL (70-104); POTASSIUM 3.7 MMOL/L (3.5-5.1); SODIUM 140 MMOL/L (135-145); TOTAL CARBON DIOXIDE 22.1 MMOL/L (24-32); eGFR > 90 ML/MIN
[2019-07-14 06:22] LABS: HYPOCHROMASIA 1+; MICROCYTOSIS 2+; PLATELET ESTIMATE NORMAL; TEAR DROP CELLS 1+; TOTAL CELLS COUNTED 100
[2019-07-14 06:23] LABS: ELLIPTOCYTES 1+
--- NOTE | 2019-07-14 06:30 | NUR ---
Patient in room [facility]. I have received report from Maye GARNER and had the opportunity to ask questions and assume patient care.
--- NOTE | 2019-07-14 06:33 | NUR ---
Problems reprioritized. Patient report given, questions answered & plan of care reviewed with IVELISSE.
[2019-07-14 07:10] VITALS: BP 115/74
[2019-07-14] MEDS: heparin, porcine 5000 units/ml vial SQ SCH (08:00)
[2019-07-14] MEDS: K and/or MAG REPLACEMENT MC SCH (08:00)
[2019-07-14] MEDS: budesonide 0.5mg/2ml UD nebule IH SCH (08:08)
[2019-07-14] MEDS: CefTRIAXone/D5W-Rocephin 1gm 50 ML IV SCH (08:13)
[2019-07-14] MEDS: multivitamins, therapeutics tablet PO SCH (08:17)
[2019-07-14] MEDS: levetiracetam 250mg tablet PO SCH (08:17)
[2019-07-14] MEDS: lactobacillus rhamnosus 10,000 MMU CELLS/CAPSULE PO SCH (08:17)
[2019-07-14] MEDS: azithromycin 250mg tablet PO SCH (08:18)
[2019-07-14] MEDS: lisinopril 5mg tablet PO SCH (08:18)
[2019-07-14] MEDS: cyanocobalamin 500mcg tablet PO SCH (08:19)
[2019-07-14] MEDS: vitamin D (cholecalciferol) 1,000 unit tablet PO SCH (08:21)
[2019-07-14] MEDS: amLODIPine 5mg tablet PO SCH (08:21)
[2019-07-14] MEDS: levoTHYROXINE 88mcg tablet PO SCH (08:21)
[2019-07-14] MEDS ORDERED: LEVO750T21 PO (08:42)
[2019-07-14] MEDS ORDERED: ALBU8.5H8 INH (08:42)
[2019-07-14 11:00] VITALS: BP 131/69
--- NOTE | 2019-07-14 11:30 | NUR ---
Patient discharged into the care of her family, Patient daughter was in the room during discharge teaching. New medications and changes were made to medication regime, patient and family showed verbal understanding. Patient IV taken out at this time. Patient was discharge with home health starting 07/15. Patient left in wheel chair and was taken to lobby to transported home in private vehicle.
--- NOTE | 2019-07-17 14:21 | NUR ---
Case Management DC follow up: spoke to pt & CG. reports feeling better. No worsening s/s of PNE. Denies emergent SOB, resp distress, cp, acute general pain, NV, abd pain, dizziness.Educated pt on breathing exercise, cough to keep lungs clear. pt verbalizes understanding. pt ambulates using walker. Follow up appt w/PCP/[facility] 07/25/2019. CG w/pt daily. [facility] has been to home for intake, PT scheduled for 07/18/2019. verbalizes understanding of meds, why prescribed, taking as ordered, no ase noted. Verbalizes understanding of s/s tht would warrant -/ER visit for evaluation. needs met, questions answered at DC, no further questions at this time
== END 2019-07-14 11:35 | disposition home health service (06) | DRG 871 ==
LOC: ER 03:13 → ED HOLD 07:42 → SUR 3N 09:41
PROVIDERS: ADMIT Internal Medicine; ATTEND Internal Medicine
DX: A41.9 Sepsis, unspecified organism (principal); J18.9 Pneumonia, unspecified organism; N39.0 Urinary tract infection, site not specified; E87.2 Acidosis; J44.0 Chronic obstructive pulmonary disease with (acute) lower respiratory infection; E03.9 Hypothyroidism, unspecified; E78.00 Pure hypercholesterolemia, unspecified; D64.9 Anemia, unspecified; N20.0 Calculus of kidney; E78.5 Hyperlipidemia, unspecified; F17.210 Nicotine dependence, cigarettes, uncomplicated; G40.909 Epilepsy, unspecified, not intractable, without status epilepticus; I10 Essential (primary) hypertension; I25.10 Atherosclerotic heart disease of native coronary artery without angina pectoris; K80.20 Calculus of gallbladder without cholecystitis without obstruction; Z79.899 Other long term (current) drug therapy; Z86.73 Personal history of transient ischemic attack (TIA), and cerebral infarction without residual deficits; Z88.2 Allergy status to sulfonamides; Z91.041 Radiographic dye allergy status; Z95.5 Presence of coronary angioplasty implant and graft
CPT/HCPCS: 36415; 71045; 74176; 80048; 80053; 81001; 83605; 83880; 84132; 84145; 84443; 84484; 85025; 87040; 87077; 87081; 87088; 87186; 93005; 94640; 94760; 96365; 96375; 96376; 97110; 97112; 97116; 97161; 97530; 97535; 99285; C9113; G0378; J0456; J0696; J1644; J1956; J2270; J2405; J7030; J7626

== ENCOUNTER 2019-08-07 18:53 | Emergency (ER) | payer MEDICARE ==
[~2019-08-07] VITALS: Ht 160 cm; Wt 59.1 kg
[~2019-08-07 18:53] MED LIST changes: -ALBU18HF2 INH; +ALBU8.5H8 INH; +AMLO2.5T2 PO; -ASPI-1265 PO; +CALC-212 PO; -CEPH500C5 PO; +CRAN500C3 PO; -GEMF600T89 PO; -HYDR-4383 PO; +KEP500T PO; +LACT1CAP65 PO; +LEVO750T21 PO; -LISI-604 PO
[2019-08-07] MEDS ORDERED: TETanus/Pertussis (Acell)/Diphther VAC/PF (Tdap-Adult) 0.5ml syringe IMVAC ONE (22:10)
[2019-08-07] MEDS ORDERED: LIDOcaine 1% W/epiNEPHrine 1:200,000 10ml vial IJ ONE (22:10)
[2019-08-07] MEDS ORDERED: acetaminophen 325mg tablet PO ONE (22:30)
[2019-08-07] MEDS ORDERED: azithromycin 250mg tablet PO ONE (22:30)
[2019-08-07 22:54] LABS: BASOPHILS # (AUTO) 0.1 X10'3 (0-0.2); EOSINOPHILS # (AUTO) 0.2 X10'3 (0-0.9); EOSINOPHILS % (AUTO) 2.5 % (0-6); HEMATOCRIT 34.3 % (35.0-45.0); HEMOGLOBIN 11.4 g/dl (12.0-16.0); LYMPHOCYTES # (AUTO) 1.9 X10'3 (1.1-4.8); LYMPHOCYTES % (AUTO) 22.8 % (21-51); MEAN CORPUSCULAR HEMOGLOBIN 20.7 PG (27.0-31.0); MEAN CORPUSCULAR HGB CONC 33.4 g/dL (33.0-36.5); MEAN CORPUSCULAR VOLUME 61.9 FL (78-98); MEAN PLATELET VOLUME 9.9 FL (7.4-10.4); MONOCYTES # (AUTO) 0.4 X10'3 (0-0.9); MONOCYTES % (AUTO) 5.3 % (2-12); NEUTROPHILS # (AUTO) 5.8 X10'3 (1.8-7.7); NEUTROPHILS % (AUTO) 68.4 % (42-75); PLATELET COUNT 297 X10'3 (140-440); RED BLOOD COUNT 5.54 X10'6 (4.20-5.60); RED CELL DISTRIBUTION WIDTH 16.5 % (11.5-14.5); WHITE BLOOD COUNT 8.5 X10'3 (4.5-11.0)
[2019-08-07 23:03] LABS: ALANINE AMINOTRANSFERASE 19 U/L (12-78); ALBUMIN 4.1 G/DL (3.4-5.0); ALBUMIN/GLOBULIN RATIO 1.3 (1.1-1.5); ALKALINE PHOSPHATASE 60 IU/L (46-116); ANION GAP 8 (8-16); ASPARTATE AMINO TRANSFERASE 21 U/L (10-37); BILIRUBIN,TOTAL 0.7 MG/DL (0.1-1.0); BLOOD UREA NITROGEN 12 MG/DL (7-18); BUN/CREATININE RATIO 16.9 (6.6-38.0); CALCIUM 8.9 MG/DL (8.5-10.1); CHLORIDE 101 MMOL/L (99-107); CREATININE 0.71 MG/DL (0.40-0.90); GLUCOSE 102 MG/DL (70-104); POTASSIUM 4.1 MMOL/L (3.5-5.1); SODIUM 135 MMOL/L (135-145); TOTAL CARBON DIOXIDE 25.8 MMOL/L (24-32); TOTAL PROTEIN 7.3 G/DL (6.4-8.2); eGFR 80 ML/MIN
[2019-08-07 23:28] LABS: ANISOCYTOSIS 1+; ELLIPTOCYTES 1+; MICROCYTOSIS 2+; PLATELET ESTIMATE NORMAL; TARGET CELLS FEW; TEAR DROP CELLS 1+
[2019-08-07] MEDS ORDERED: AZIT250T2 PO (23:40)
[2019-08-07 23:54] VITALS: BP 148/76
== END 2019-08-07 23:56 | disposition home or self-care (01) ==
LOC: ER 18:54
DX: S01.81XA Laceration without foreign body of other part of head, initial encounter (principal); J18.9 Pneumonia, unspecified organism; R42 Dizziness and giddiness; I25.10 Atherosclerotic heart disease of native coronary artery without angina pectoris; E78.00 Pure hypercholesterolemia, unspecified; I10 Essential (primary) hypertension; J44.9 Chronic obstructive pulmonary disease, unspecified; E03.9 Hypothyroidism, unspecified; Z98.61 Coronary angioplasty status; Z98.890 Other specified postprocedural states; Z88.2 Allergy status to sulfonamides; Z91.048 Other nonmedicinal substance allergy status; Z79.2 Long term (current) use of antibiotics; Z79.899 Other long term (current) drug therapy; W18.39XA Other fall on same level, initial encounter; Y93.89 Activity, other specified; Y92.89 Other specified places as the place of occurrence of the external cause; Y99.8 Other external cause status
CPT/HCPCS: 12011; 36415; 70450; 71045; 72125; 80053; 85025; 90471; 90715; 99285

== ENCOUNTER 2020-01-11 13:08 | Emergency (ER) | payer MEDICARE ==
[~2020-01-11] VITALS: Ht 160 cm; Wt 61.8 kg
[~2020-01-11 13:08] MED LIST changes: -LEVO750T21 PO
[2020-01-11 13:54] LABS: BASOPHILS % (AUTO) 0.2 % (0-1); EOSINOPHILS # (AUTO) 0.1 X10'3 (0-0.9); EOSINOPHILS % (AUTO) 0.7 % (0-6); HEMATOCRIT 35.3 % (35.0-45.0); HEMOGLOBIN 11.4 g/dl (12.0-16.0); LYMPHOCYTES % (AUTO) 12.9 % (21-51); MEAN CORPUSCULAR HEMOGLOBIN 20.5 PG (27.0-31.0); MEAN CORPUSCULAR HGB CONC 32.2 g/dL (33.0-36.5); MEAN CORPUSCULAR VOLUME 63.7 FL (78-98); MONOCYTES # (AUTO) 0.3 X10'3 (0-0.9); MONOCYTES % (AUTO) 4.2 % (2-12); NEUTROPHILS # (AUTO) 6.5 X10'3 (1.8-7.7); PLATELET COUNT 275 X10'3 (140-440); RED BLOOD COUNT 5.54 X10'6 (4.20-5.60); RED CELL DISTRIBUTION WIDTH 14.9 % (11.5-14.5); WHITE BLOOD COUNT 7.9 X10'3 (4.5-11.0)
[2020-01-11 13:55] LABS: CLARITY,URINE CLOUDY (Clear); COLOR,URINE STRAW (Yellow); GLUCOSE, URINE NEGATIVE (Neg); KETONES,URINE NEGATIVE (Neg); LEUKOCYTE ESTERASE ,URINE MODERATE (Neg); NITRITES, URINE POSITIVE (Neg); OCCULT BLOOD,URINE TRACE-INTACT (Neg); PH,URINE 7.5 (4.8-8.0); PROTEIN,URINE NEGATIVE (Neg); UROBILINOGEN,URINE 0.2 E.U/dL (0.2-1.0)
[2020-01-11 14:01] LABS: UA COLLECTION TYPE OTHER
[2020-01-11 14:02] LABS: BACTERIA,URINE 3+ /HPF (Neg); SQUAMOUS EPITHELIAL CELL,UR MODERATE /LPF (FEW)
[2020-01-11 14:03] LABS: RBC,URINE 0-2 /HPF (0-2)
[2020-01-11 14:12] LABS: ALANINE AMINOTRANSFERASE 22 U/L (12-78); ALBUMIN 4.2 G/DL (3.4-5.0); ALBUMIN/GLOBULIN RATIO 1.4 (1.1-1.5); ALKALINE PHOSPHATASE 63 IU/L (46-116); ANION GAP 10 (8-16); ASPARTATE AMINO TRANSFERASE 26 U/L (10-37); BILIRUBIN,TOTAL 0.9 MG/DL (0.1-1.0); BLOOD UREA NITROGEN 9 MG/DL (7-18); BUN/CREATININE RATIO 14.3 (6.6-38.0); CALCIUM 8.5 MG/DL (8.5-10.1); CHLORIDE 99 MMOL/L (99-107); CREATININE 0.63 MG/DL (0.40-0.90); GLUCOSE 95 MG/DL (70-104); POTASSIUM 3.4 MMOL/L (3.5-5.1); SODIUM 133 MMOL/L (135-145); TOTAL CARBON DIOXIDE 24.4 MMOL/L (24-32); TOTAL PROTEIN 7.3 G/DL (6.4-8.2); eGFR > 90 ML/MIN
[2020-01-11 14:16] LABS: TROPONIN I < 0.04 NG/ML (0.0-0.05)
[2020-01-11 14:25] VITALS: BP 136/76
[2020-01-11 14:28] LABS: PLATELET ESTIMATE NORMAL
[2020-01-11 14:30] LABS: ANISOCYTOSIS FEW; HYPOCHROMASIA 2+; MICROCYTOSIS 2+; POLYCHROMASIA 1+
[2020-01-11 14:31] LABS: ELLIPTOCYTES 1+; TEAR DROP CELLS 1+
--- NOTE | 2020-01-11 14:49 | NUR ---
SPOKE TO PT'S DAUGHTER ON PHONE, WHO STATED SHE IS UNABLE TO COME PICK THE PT UP BUT WILL TRY AND ARRANGE A RIDE FOR PT.
--- NOTE | 2020-01-11 15:04 | NUR ---
Pt daughter returned call; unable to find traportation for pt. Will call for taxi, and daughter states she will meet the taxi out front with the pt's walker.
== END 2020-01-11 16:14 | disposition home or self-care (01) ==
LOC: ER 13:09
DX: N39.0 Urinary tract infection, site not specified (principal); M54.2 Cervicalgia; R07.81 Pleurodynia; W01.198A Fall on same level from slipping, tripping and stumbling with subsequent striking against other object, initial encounter; Y92.89 Other specified places as the place of occurrence of the external cause; Y93.89 Activity, other specified; I25.10 Atherosclerotic heart disease of native coronary artery without angina pectoris; E78.00 Pure hypercholesterolemia, unspecified; I10 Essential (primary) hypertension; J44.9 Chronic obstructive pulmonary disease, unspecified; E03.9 Hypothyroidism, unspecified; Z98.61 Coronary angioplasty status; Z88.2 Allergy status to sulfonamides; Z91.041 Radiographic dye allergy status; Z91.81 History of falling; Z79.899 Other long term (current) drug therapy; Y99.8 Other external cause status
CPT/HCPCS: 36415; 70450; 71045; 72125; 80053; 81001; 84484; 85025; 87077; 87088; 87186; 99285

== ENCOUNTER 2020-02-01 21:24 | Emergency (ER) | payer MEDICARE ==
[~2020-02-01] VITALS: Ht 157.5 cm; Wt 55.2 kg
[2020-02-01 21:29] VITALS: BP 185/92
[2020-02-01] MEDS ORDERED: acetaminophen 325mg tablet PO ONE (22:05)
== END 2020-02-01 22:52 | disposition home or self-care (01) ==
LOC: ER 21:24
DX: S80.02XA Contusion of left knee, initial encounter (principal); I25.10 Atherosclerotic heart disease of native coronary artery without angina pectoris; E78.00 Pure hypercholesterolemia, unspecified; I10 Essential (primary) hypertension; J44.9 Chronic obstructive pulmonary disease, unspecified; E03.9 Hypothyroidism, unspecified; Z98.61 Coronary angioplasty status; Z98.890 Other specified postprocedural states; Z88.2 Allergy status to sulfonamides; Z88.8 Allergy status to other drugs, medicaments and biological substances; Z79.899 Other long term (current) drug therapy; W19.XXXA Unspecified fall, initial encounter; Y93.89 Activity, other specified; Y92.89 Other specified places as the place of occurrence of the external cause; Y99.8 Other external cause status
CPT/HCPCS: 73564; 99283

== ENCOUNTER 2020-03-03 13:55 | Emergency (ER) | payer MEDICARE ==
[~2020-03-03] VITALS: Ht 158.8 cm; Wt 60.9 kg
[2020-03-03] MEDS ORDERED: acetaminophen 325mg tablet PO ONE (15:45)
[2020-03-03 16:16] VITALS: BP 132/64
== END 2020-03-03 16:13 | disposition home or self-care (01) ==
LOC: ER 13:56
DX: R51 Headache (principal); R20.0 Anesthesia of skin; G62.9 Polyneuropathy, unspecified; I25.10 Atherosclerotic heart disease of native coronary artery without angina pectoris; E78.00 Pure hypercholesterolemia, unspecified; I10 Essential (primary) hypertension; J44.9 Chronic obstructive pulmonary disease, unspecified; E03.9 Hypothyroidism, unspecified; Z98.61 Coronary angioplasty status; Z98.890 Other specified postprocedural states; Z88.2 Allergy status to sulfonamides; Z88.8 Allergy status to other drugs, medicaments and biological substances; Z79.899 Other long term (current) drug therapy
CPT/HCPCS: 70450; 99284